=== PATIENT | female | born 1965 | race African-American/Black ===

== ENCOUNTER 2025-01-24 08:29 | Inpatient (IN) | payer OTHER ==
[~2025-01-24] VITALS: Ht 160 cm; Wt 88.9 kg
[2025-01-24 08:38] VITALS: O2SAT 98
[2025-01-24 09:02] LABS: BASOPHILS % 0.5 % (0.0-2.0); EOSINOPHILS % 1.5 % (0.0-5.0); HEMATOCRIT. 39.3 % (36.0-48.0); HEMOGLOBIN. 12.4 g/dL (12.0-16.0); LYMPHOCYTES % 39.3 % (20.0-50.0); MEAN PLATELET VOLUME 8.4 fl (7.4-10.4); MONOCYTES % 6.5 % (2.0-8.0); NEUTROPHILS % 52.2 % (40.0-76.0); PLATELET 243 x1000/uL (130-400); RED BLOOD CELL COUNT 4.42 mill/uL (4.2-5.4); RED CELL DISTRIBUTION WIDTH 14.3 % (11.6-14.6)
[2025-01-24 09:14] LABS: INR 1.0
[2025-01-24 09:25] LABS: CREATININE 1.0 mg/dL (0.6-1.0)
[2025-01-24 09:26] LABS: ETHANOL BLOOD < 10 mg/dL (<10); PROTEIN TOTAL 7.5 g/dL (6.0-8.3); UREA NITROGEN BLOOD 16 mg/dL (9-23)
[2025-01-24 09:27] LABS: ASPARTATE AMINOTRANSFERASE 14 IU/L (<34)
[2025-01-24 09:28] LABS: BILIRUBIN TOTAL 0.3 mg/dL (0.1-1.0)
[2025-01-24 09:42] LABS: BILIRUBIN DIRECT < 0.1 mg/dL (<=3.0)
[2025-01-24] MEDS: IOHEXOL-350 100 ML BOTTLE ONE (10:20)
[2025-01-24 11:01] LABS: CLARITY URINE CLEAR (CLEAR); COLOR URINE YELLOW (YELLOW); GLUCOSE URINE NEGATIVE (NEGATIVE); KETONES URINE NEGATIVE (NEGATIVE); LEUKOCYTE ESTERASE URINE NEGATIVE (NEGATIVE); NITRITE URINE NEGATIVE (NEGATIVE); OCCULT BLOOD URINE NEGATIVE (NEGATIVE); PH URINE 7.0 (4.5-8.0); PROTEIN URINE NEGATIVE (NEGATIVE); SPECIFIC GRAVITY URINE 1.026 (1.005-1.030); UROBILINOGEN URINE 0.2 E.U./dL (0.2-1.0)
[2025-01-24 11:18] LABS: *AMPHETAMINES SCREEN URINE NEGATIVE (NEGATIVE); *BARBITURATES SCREEN URINE NEGATIVE (NEGATIVE); *BENZODIAZEPINES SCREEN URINE NEGATIVE (NEGATIVE); *COCAINE SCREEN URINE NEGATIVE (NEGATIVE); CANNABINOID URINE SCREEN NEGATIVE (NEGATIVE); METHADONE URINE SCREEN NEGATIVE (NEGATIVE); OPIATES URINE SCREEN NEGATIVE (NEGATIVE); PHENCYCLIDINE URINE SCREEN NEGATIVE (NEGATIVE)
[2025-01-24 11:19] LABS: ECSTASY MDMA SCREEN URINE NEGATIVE (NEGATIVE)
[2025-01-24] MEDS ORDERED: ASPIRIN 81MG TABLET PO NR (11:30)
[2025-01-24] MEDS ORDERED: CLOPIDOGREL 75MG TABLET PO SCH (11:30)
[2025-01-24] MEDS ORDERED: ONDANSETRON HCL 4MG/2ML INJ IV PRN (11:30)
[2025-01-24] MEDS ORDERED: IPRATROPIUM/ALBUTEROL 0.5-3(2.5)MG/3ML NEB HHN PRN (11:30)
[2025-01-24] MEDS ORDERED: ACETAMINOPHEN 325MG TABLET PO PRN ×2 (11:30)
[2025-01-24] MEDS ORDERED: DOCUSATE SODIUM 100MG CAPSULE PO PRN (11:30)
[2025-01-24] MEDS ORDERED: ASPIRIN 325MG TABLET PO NR (12:30)
[2025-01-24 13:12] LABS: FOLIC ACID (FOLATE) SERUM 13.40 ng/mL (>5.38)
[2025-01-24 13:14] LABS: VITAMIN B12 SERUM 423 pg/mL (211-911)
[2025-01-24 13:28] VITALS: BP 168/94; PULSE 100; RESP 18; TEMP 36.696
[2025-01-24] MEDS ORDERED: CHOL400D7 PO (13:39)
[2025-01-24] MEDS ORDERED: METF-1150 PO (13:39)
[2025-01-24] MEDS ORDERED: GLIP5TAB22 PO (13:39)
[2025-01-24] MEDS ORDERED: LOSA100T33 PO (13:39)
[2025-01-24] MEDS ORDERED: BENZ2TAB65 PO (13:39)
[2025-01-24] MEDS ORDERED: LURA20TA PO (13:39)
[2025-01-24] MEDS ORDERED: DOCU100T PO (13:39)
[2025-01-24] MEDS ORDERED: AMLO2.5T45 PO (13:39)
[2025-01-24] MEDS ORDERED: HYDR-3992 PO (13:39)
[2025-01-24] MEDS: SODIUM CHLORIDE 0.9% 1,000 ML IV SCH (15:06)
[2025-01-24] MEDS: TETANUS AND DIPHTHERIA TOX/PF 0.5ML SYR (ADULT) IM ONE (15:06)
[2025-01-24 16:00] VITALS: BP_SYST 169; BP_SYST 189; BP_DIAS 88; BP_DIAS 98; PULSE 100; PULSE 103; RESP 19; TEMP 36.5; TEMP 36.9; O2SAT 100; O2SAT 98
[2025-01-24] MEDS ORDERED: LIDOCAINE HCL 2% 5ML SYRINGE IV NR (17:30)
[2025-01-24] MEDS ORDERED: HALO20TA6 PO (18:38)
[2025-01-24 20:00] VITALS: BP 157/87; PULSE 98; RESP 18; TEMP 36.4; O2SAT 97
[2025-01-24] MEDS ORDERED: ATORVASTATIN CALCIUM 40MG TABLET PO SCH (21:00)
[2025-01-24] MEDS: ATORVASTATIN CALCIUM 40MG TABLET PO SCH (21:44)
[2025-01-24] MEDS: ENOXAPARIN 30MG/0.3ML SYR SUBCUT SCH (21:46)
[2025-01-25] VITALS: BP 161/87; PULSE 93; RESP 18; TEMP 36.6; O2SAT 94
[2025-01-25 04:00] VITALS: BP 164/89; PULSE 90; RESP 18; TEMP 36.7; O2SAT 95
[2025-01-25 06:37] LABS: LDL CHOLESTEROL 132.0 mg/dL (5-100); TRIGLYCERIDE 114.0 mg/dL (0-150)
[2025-01-25 08:00] VITALS: BP 207/98; PULSE 95; RESP 17; TEMP 36.8; O2SAT 97
[2025-01-25] MEDS: ASPIRIN 81MG EC TABLET PO SCH (08:19)
[2025-01-25] MEDS: LABETALOL 5MG/ML 4ML INJ IV PRN (08:19)
[2025-01-25] MEDS: CLOPIDOGREL 75MG TABLET PO SCH (08:20)
[2025-01-25 11:56] VITALS: BP 188/100; PULSE 100; RESP 18; TEMP 36.6; O2SAT 99
[2025-01-25 16:00] VITALS: BP 154/88; PULSE 92; RESP 17; TEMP 36.7; O2SAT 100
[2025-01-25 17:51] LABS: BASOPHILS % 0.3 % (0.0-2.0); EOSINOPHILS % 1.2 % (0.0-5.0); HEMATOCRIT. 38.0 % (36.0-48.0); HEMOGLOBIN. 12.3 g/dL (12.0-16.0); LYMPHOCYTES % 41.8 % (20.0-50.0); MEAN PLATELET VOLUME 9.0 fl (7.4-10.4); MONOCYTES % 10.3 % (2.0-8.0); NEUTROPHILS % 46.4 % (40.0-76.0); PLATELET 234 x1000/uL (130-400); RED BLOOD CELL COUNT 4.30 mill/uL (4.2-5.4); RED CELL DISTRIBUTION WIDTH 14.5 % (11.6-14.6)
[2025-01-25 18:06] LABS: CREATININE 0.9 mg/dL (0.6-1.0)
[2025-01-25 18:07] LABS: PROTEIN TOTAL 6.9 g/dL (6.0-8.3); UREA NITROGEN BLOOD 12 mg/dL (9-23)
[2025-01-25 18:08] LABS: ASPARTATE AMINOTRANSFERASE 12 IU/L (<34)
[2025-01-25 18:09] LABS: BILIRUBIN TOTAL 0.4 mg/dL (0.1-1.0)
[2025-01-25 20:00] VITALS: BP 159/88; RESP 18; TEMP 36.3; O2SAT 97
[2025-01-26] VITALS: BP 140/80; PULSE 89; RESP 19; TEMP 36.7; O2SAT 97
[2025-01-26 04:00] VITALS: BP 155/89; PULSE 99; RESP 18; TEMP 36.1; O2SAT 98
[2025-01-26 08:00] VITALS: BP 185/97; PULSE 101; RESP 18; TEMP 36.6; O2SAT 97
[2025-01-26 12:00] VITALS: BP 128/92; PULSE 107; RESP 18; TEMP 36.5; O2SAT 97
[2025-01-26 16:00] VITALS: BP 179/92; PULSE 105; RESP 18; TEMP 36.5; O2SAT 98
[2025-01-26 20:00] VITALS: BP 155/78; PULSE 102; RESP 18; TEMP 36.7; O2SAT 95
[2025-01-26 22:05] LABS: BASOPHILS % 0.4 % (0.0-2.0); EOSINOPHILS % 1.1 % (0.0-5.0); HEMATOCRIT. 36.5 % (36.0-48.0); HEMOGLOBIN. 11.6 g/dL (12.0-16.0); LYMPHOCYTES % 30.3 % (20.0-50.0); MEAN PLATELET VOLUME 8.9 fl (7.4-10.4); MONOCYTES % 11.0 % (2.0-8.0); NEUTROPHILS % 57.2 % (40.0-76.0); PLATELET 234 x1000/uL (130-400); RED BLOOD CELL COUNT 4.13 mill/uL (4.2-5.4); RED CELL DISTRIBUTION WIDTH 14.7 % (11.6-14.6)
[2025-01-26 22:19] LABS: CREATININE 0.8 mg/dL (0.6-1.0); UREA NITROGEN BLOOD 15 mg/dL (9-23)
[2025-01-27] VITALS (8 sets, daily range): BP systolic 156–191; BP diastolic 79–97; PULSE 91–108; RESP 18–20; TEMP 36.5–38.1; O2SAT 94–97
[2025-01-27 06:19] LABS: BASOPHILS % 0.4 % (0.0-2.0); EOSINOPHILS % 1.6 % (0.0-5.0); HEMATOCRIT. 36.1 % (36.0-48.0); HEMOGLOBIN. 11.6 g/dL (12.0-16.0); LYMPHOCYTES % 35.7 % (20.0-50.0); MEAN PLATELET VOLUME 8.5 fl (7.4-10.4); MONOCYTES % 11.6 % (2.0-8.0); NEUTROPHILS % 50.7 % (40.0-76.0); PLATELET 219 x1000/uL (130-400); RED BLOOD CELL COUNT 4.09 mill/uL (4.2-5.4); RED CELL DISTRIBUTION WIDTH 14.6 % (11.6-14.6)
[2025-01-27 06:36] LABS: CREATININE 0.7 mg/dL (0.6-1.0); UREA NITROGEN BLOOD 14 mg/dL (9-23)
[2025-01-27] MEDS ORDERED: LIP40 PO (16:39)
[2025-01-27] MEDS ORDERED: CLOP-31 PO (16:39)
[2025-01-27] MEDS ORDERED: ASPI-1406 PO (16:39)
[2025-01-27] MEDS: CLONIDINE 0.1MG TABLET PO PRN (22:05)
[2025-01-28] VITALS: BP 159/90; PULSE 96; RESP 18; TEMP 36.6; O2SAT 95
[2025-01-28 04:00] VITALS: BP 150/86; PULSE 91; RESP 20; TEMP 36.6; O2SAT 95
[2025-01-28 08:00] VITALS: BP 157/81; PULSE 91; RESP 18; TEMP 36.6; O2SAT 96
[2025-01-28 12:10] VITALS: BP 159/94; PULSE 96; RESP 18; TEMP 36.2; O2SAT 98
[2025-01-28 16:20] VITALS: BP 157/93; PULSE 95; RESP 18; TEMP 35.6; O2SAT 98
[2025-01-28 20:00] VITALS: BP 167/87; PULSE 82; RESP 20; O2SAT 98
[2025-01-29] VITALS: BP 153/82; PULSE 86; RESP 18; TEMP 36.5; O2SAT 100
[2025-01-29 04:00] VITALS: BP 168/85; PULSE 89; RESP 20; TEMP 36.4; O2SAT 100
[2025-01-29 08:00] VITALS: BP 136/76; PULSE 83; RESP 18; TEMP 36.2; O2SAT 95
[2025-01-29 12:15] VITALS: BP 154/82; PULSE 80; RESP 18; TEMP 36.3; O2SAT 96
[2025-01-29 14:08] LABS: LIDOCAINE None Detected ug/mL (1.5-5.0)
[2025-01-29 16:05] VITALS: BP 147/79; PULSE 73; RESP 19; TEMP 36.3; O2SAT 95
[2025-01-29 20:00] VITALS: BP 166/97; PULSE 89; RESP 18; TEMP 36.7; O2SAT 97
[2025-01-30] VITALS: BP 149/88; PULSE 97; RESP 18; TEMP 36.9; O2SAT 98
[2025-01-30 04:00] VITALS: BP 169/80; PULSE 95; RESP 18; TEMP 36.2; O2SAT 99
[2025-01-30 08:30] VITALS: BP 158/97; PULSE 80; RESP 18; TEMP 36.7; O2SAT 98
[2025-01-30 12:20] VITALS: BP 149/82; PULSE 83; RESP 17; TEMP 36.5; O2SAT 99
[2025-01-30 16:15] VITALS: BP 150/79; PULSE 88; RESP 18; TEMP 36.5; O2SAT 100
[2025-01-30 20:00] VITALS: BP 190/99; PULSE 93; RESP 16; TEMP 36.6; O2SAT 100
[2025-01-31 00:06] VITALS: BP 185/95; PULSE 90; RESP 18; TEMP 36.5; O2SAT 99
[2025-01-31 04:08] VITALS: BP 163/81; PULSE 94; RESP 19; TEMP 36.5; O2SAT 99
[2025-01-31 08:00] VITALS: BP 149/83; PULSE 89; RESP 19; TEMP 36.6; O2SAT 97
[2025-01-31] MEDS: AMLODIPINE 5MG TABLET PO SCH (10:55)
[2025-01-31] MEDS: LOSARTAN 100 MG TABLET PO SCH (10:55)
[2025-01-31 12:00] VITALS: BP 163/83; PULSE 85; RESP 18; TEMP 37.1; O2SAT 98
[2025-01-31 16:00] VITALS: BP 136/67; PULSE 85; RESP 20; TEMP 36.5; O2SAT 98
[2025-01-31 20:00] VITALS: BP 173/93; PULSE 90; RESP 19; TEMP 36.7; O2SAT 98
[2025-02-01] VITALS (7 sets, daily range): BP systolic 129–162; BP diastolic 70–82; PULSE 76–89; RESP 16–19; TEMP 36.4–36.9; O2SAT 98–99
[2025-02-02] VITALS: BP 154/78; PULSE 80; RESP 16; TEMP 36.6; O2SAT 98
[2025-02-02 04:00] VITALS: BP 166/76; PULSE 78; RESP 16; TEMP 36.7; O2SAT 98
[2025-02-02 08:00] VITALS: BP 115/70; PULSE 76; RESP 18; TEMP 36.6; O2SAT 99
[2025-02-02] MEDS ORDERED: NIFEDIPINE 10MG CAPSULE PO SCH (09:30)
[2025-02-02] MEDS: NIFEDIPINE XL 30MG TAB PO SCH (10:53)
[2025-02-02 12:00] VITALS: BP 142/60; PULSE 63; RESP 17; TEMP 36.8; O2SAT 99
[2025-02-02 16:00] VITALS: BP 166/89; PULSE 86; RESP 17; TEMP 36.5; O2SAT 98
[2025-02-02 20:00] VITALS: BP 122/79; PULSE 90; RESP 19; TEMP 36.6; O2SAT 96
[2025-02-02] MEDS ORDERED: MEDICATION NOT ON FORMULARY EA (Lurasidone Hcl (Latuda) 20 MG) PO SCH (22:15)
[2025-02-02] MEDS: BENZTROPINE MESYLATE 2MG TABLET PO SCH (23:28)
[2025-02-02] MEDS: HALOPERIDOL 5MG TABLET PO SCH (23:28)
[2025-02-03] VITALS: BP 114/72; PULSE 79; RESP 18; TEMP 36.6; O2SAT 96
[2025-02-03 08:00] VITALS: BP 126/73; PULSE 82; RESP 18; TEMP 36.6; O2SAT 97
[2025-02-03 12:00] VITALS: BP 146/86; PULSE 91; RESP 18; TEMP 36.7; O2SAT 98
[2025-02-03 16:00] VITALS: BP 128/89; PULSE 88; RESP 18; TEMP 37.1; O2SAT 99
[2025-02-03 20:00] VITALS: BP 151/85; PULSE 90; RESP 18; TEMP 36.1; O2SAT 96
[2025-02-03 21:30] VITALS: BP 165/86
[2025-02-04] VITALS: BP 131/65; PULSE 76; RESP 18; TEMP 36.1; O2SAT 94
[2025-02-04 04:00] VITALS: BP 128/65; PULSE 77; RESP 18; TEMP 36.2; O2SAT 97
[2025-02-04 08:00] VITALS: BP 145/78; PULSE 77; RESP 19; TEMP 35.9; O2SAT 98
[2025-02-04] MEDS: NIFEDIPINE XL 60MG TAB PO SCH (08:53)
[2025-02-04] MEDS ORDERED: NIFE-32 MT (08:57)
[2025-02-04 12:00] VITALS: BP 142/81; PULSE 90; RESP 17; TEMP 36.3; O2SAT 99
[2025-02-04 20:00] VITALS: BP 139/68; PULSE 82; RESP 18; TEMP 36.7; O2SAT 98
[2025-02-04] MEDS: LIDOCAINE HCL 1% 20ML VIAL INFIL ONE (20:46)
[2025-02-05] VITALS: BP 142/72; PULSE 80; RESP 18; TEMP 36.8; O2SAT 97
[2025-02-05 04:00] VITALS: BP 136/56; PULSE 76; RESP 18; TEMP 36.8; O2SAT 98
[2025-02-05 08:00] VITALS: BP 143/76; PULSE 76; RESP 17; TEMP 36.6; O2SAT 97
[2025-02-05 12:00] VITALS: BP 128/72; PULSE 78; RESP 18; TEMP 36.3; O2SAT 98
[2025-02-05 16:00] VITALS: BP 132/73; PULSE 81; RESP 18; TEMP 36.7; O2SAT 97
[2025-02-05 20:00] VITALS: BP 134/86; PULSE 89; RESP 17; TEMP 36.2; TEMP 36.5; O2SAT 99
[2025-02-06] VITALS: BP 142/74; PULSE 82; RESP 18; TEMP 36.1; O2SAT 97
[2025-02-06 04:00] VITALS: BP 141/79; PULSE 84; RESP 18; TEMP 36.5; O2SAT 99
[2025-02-06 08:00] VITALS: BP_SYST 115; BP_SYST 116; BP_DIAS 47; BP_DIAS 58; PULSE 73; PULSE 87; RESP 18; RESP 19; TEMP 36.5; TEMP 36.6; O2SAT 97; O2SAT 98
[2025-02-06 12:00] VITALS: BP_SYST 134; BP_SYST 144; BP_DIAS 39; BP_DIAS 64; PULSE 71; PULSE 84; RESP 18; TEMP 36.4; TEMP 36.5; O2SAT 95; O2SAT 98
[2025-02-06 16:00] VITALS: BP_SYST 134; BP_SYST 154; BP_DIAS 45; BP_DIAS 86; PULSE 80; PULSE 81; RESP 18; RESP 19; TEMP 36.4; TEMP 36.5; O2SAT 96; O2SAT 98
[2025-02-06 20:00] VITALS: BP 140/79; PULSE 87; RESP 18; TEMP 36.5; O2SAT 96
[2025-02-07] VITALS: BP 132/76; PULSE 84; RESP 18; TEMP 36.6; O2SAT 98
[2025-02-07 04:00] VITALS: BP 142/79; PULSE 18; RESP 18; TEMP 36.4; O2SAT 100
[2025-02-07 08:30] VITALS: BP 144/67; PULSE 16; RESP 16; TEMP 36.1; O2SAT 99
[2025-02-07 12:00] VITALS: BP 144/67; PULSE 16; RESP 16; TEMP 36.1; O2SAT 99
[2025-02-07 14:43] VITALS: BP 144/76; PULSE 80; RESP 18; TEMP 98
[2025-02-07 16:00] VITALS: BP 144/67; PULSE 16; RESP 16; TEMP 36.1; O2SAT 99
== END 2025-02-07 18:44 | disposition home or self-care (01) | DRG 52 ==
LOC: ER 09:19 → 8WST 10:21 → EDBEDREQTM 10:27 → EDBEDREQ 10:27 → 4WST 01-31 11:54
PROVIDERS: ADMIT Family Medicine Adult Medicine; ATTEND Family Medicine Adult Medicine
DX: G92.8 Other toxic encephalopathy (principal); I16.0 Hypertensive urgency; J84.9 Interstitial pulmonary disease, unspecified; Z79.02 Long term (current) use of antithrombotics/antiplatelets; E11.9 Type 2 diabetes mellitus without complications; F20.9 Schizophrenia, unspecified; I10 Essential (primary) hypertension; S91.114A Laceration without foreign body of right lesser toe(s) without damage to nail, initial encounter; X58.XXXA Exposure to other specified factors, initial encounter; Z79.82 Long term (current) use of aspirin; Z86.73 Personal history of transient ischemic attack (TIA), and cerebral infarction without residual deficits; Z90.710 Acquired absence of both cervix and uterus; Z79.899 Other long term (current) drug therapy; Y93.89 Activity, other specified; Y92.89 Other specified places as the place of occurrence of the external cause; Y99.8 Other external cause status
CPT/HCPCS: 36415; 70496; 70498; 70551; 71045; 80048; 80053; 80061; 80076; 80176; 80305; 80320; 81003; 82140; 82607; 82746; 82962; 83036; 84425; 84443; 85025; 90714; 92610; 93005; 97110; 97116; 97162; 97166; 97535; 99291; A4606; A4615; J1650; J2003; J3490; J7030; Q9967; G0480